=== PATIENT | female | born 1950 | race Caucasian/White ===

== ENCOUNTER 2021-10-30 09:54 | Day surgery (SDC) | payer MEDICARE ==
[~2021-10-30] VITALS: Ht 160 cm; Wt 50.0 kg
[~2021-10-30 09:54] MED LIST: BUPR75 PO
--- NOTE | 2021-10-30 11:06 | NUR ---
10/30/21 1106 Juan Borden WIPE NOT USED DUE TO RED BUMPS ON CHEST. AWARE.
--- NOTE | 2021-10-30 11:54 | NUR ---
10/30/21 1154 NIHARIKA SAINZ PT HAS RED RASH ON CHEST PRIOR TO PREP SOLUTION. DR. BASILIO AND DR. PECK AWARE.
--- NOTE | 2021-10-30 13:02 | NUR ---
10/30/21 1302 STAR HERNÁNDEZ XRAY CAME TO CONFIRM PLACEMENT AT 1240 TREY FROM XRAY CALLED BACK TO CONFIRM THAT PLACEMENT OF PORT WAS GOOD VIA XRAY PER DR GALLEGOS [id number]
== END 2021-10-30 13:45 | disposition home or self-care (01) ==
LOC: ORSCSDS 09:54
PROVIDERS: Surgery
PROC: B544ZZA Ultrasonography of Left Jugular Veins, Guidance (ICD-10-PCS; principal; 2021-10-30 11:15)
PROC: 05HN33Z Insertion of Infusion Device into Left Internal Jugular Vein, Percutaneous Approach (ICD-10-PCS; principal; 2021-10-30 11:15)
DX: C50.911 Malignant neoplasm of unspecified site of right female breast (principal); Z87.891 Personal history of nicotine dependence; F32.A Depression, unspecified; Z79.899 Other long term (current) drug therapy
CPT/HCPCS: 77001; C1788; J0690; J1100; J1642; J2250; J2405; J2704; J3010

== ENCOUNTER → 2023-03-24 | Outpatient (CLI) | payer MEDICARE | END | disposition home or self-care (01) | LOC: LAB SHORT 16:56 → LAB 16:56 | DX: R07.9 Chest pain, unspecified (principal) | CPT/HCPCS: 84484 ==

== ENCOUNTER → 2024-02-23 | Outpatient (CLI) | payer MEDICARE ==
[~2024-02-23] MED LIST changes: +ALBU90OI INH; +AMOX875 PO; +ARIMIDEX1 M2 PO; +AZIT500 PO; +Amoxicillin500 MG PO; +BENZ100A PO; +CODEINE-GUAIFE120 M1 PO; +FLUT.05NI; +PRED20 PO; +ROBITUSSIN30 MG/511 PO; +VISBIOME 112.51 EACH PO
[2024-02-23 16:04] LABS: BASOPHILS ABSOLUTE AUTO 0.04 K/mm3 (0.00-0.23); BASOPHILS PERCENT AUTO 1 % (0-2); EOSINOPHILS ABSOLUTE AUTO 0.61 K/mm3 (0.00-0.68); EOSINOPHILS PERCENT AUTO 9 % (0-6); Hematocrit 40.1 % (33.0-51.0); Hemoglobin 13.5 g/dL (11.5-16.0); IMMATURE GRAN ABSOLUTE AUTO 0.02 K/mm3 (0.00-0.10); IMMATURE GRAN PERCENT AUTO 0 % (0-1); LYMPHOCYTES ABSOLUTE AUTO 1.27 K/mm3 (0.84-5.20); LYMPHOCYTES PERCENT AUTO 18 % (21-46); MONOCYTES ABSOLUTE AUTO 0.41 K/mm3 (0.16-1.47); MONOCYTES PERCENT AUTO 6 % (4-13); Mean Corpuscular HGB 31.8 pg (26.0-34.0); Mean Corpuscular HGB Conc 33.7 g/dL (31.5-36.5); Mean Corpuscular Volume 95 fL (80-100); Mean Platelet Volume 8.9 fL (9.1-12.4); NEUTROPHILS ABSOLUTE AUTO 4.79 K/mm3 (1.96-9.15); NEUTROPHILS PERCENT AUTO 67 % (41-73); Platelet Count 295 K/mm3 (150-400); RDW Coefficient Variation 13.2 % (11.7-14.2); RDW Standard Deviation 45.5 fL (35.1-46.3); Red Blood Cell Count 4.24 M/mm3 (3.80-5.20); White Blood Cell Count 7.14 K/mm3 (4.00-11.30)
[2024-02-23 16:18] LABS: Albumin, Blood 3.6 g/dL (3.4-5.0); Bilirubin, Total 0.2 mg/dL (0.1-1.0); Bun/Creatinine Ratio 13.6 (12.0-20.0); Calcium, Blood 9.1 mg/dL (8.5-10.1); Creatinine, Blood 0.88 mg/dL (0.40-1.00); Globulin, Blood 3.7 g/dL (2.2-4.0); Potassium, Blood 4.3 mmol/L (3.5-5.5); Total Protein, Blood 7.3 g/dL (6.4-8.2)
== END | disposition home or self-care (01) ==
LOC: LAB 16:01 → LAB SHORT 16:01
PROVIDERS: Chiropractor
DX: Z09 Encounter for follow-up examination after completed treatment for conditions other than malignant neoplasm (principal); Z87.01 Personal history of pneumonia (recurrent)
CPT/HCPCS: 80053; 85025

== ENCOUNTER 2024-08-23 11:20 | Day surgery (SDC) | payer MEDICARE ==
[~2024-08-23] VITALS: Ht 157.5 cm; Wt 47.4 kg
[~2024-08-23 11:20] MED LIST changes: +Balanced Salt Epinephrine Irrigation Solution 500 mL IR SCH; +Diazepam 10 MG Tab ONE; +Diazepam 5 MG Tab PO PRN; +Diazepam 5 MG Tab PO SCH; +Lidocaine HCl/Pf 1% 5 ML VIAL XX SCH; +Moxifloxacin HCL 0.5 MG/0.1 ML 0.4MLSYR RIGHTEYE SCH; +Ondansetron 4 MG SoluTab MM PRN; +PHENYLEPHRINE\\TROPICAMIDE\\TETRACAINE OPHTHALMIC DILATING SOLN RIGHTEYE PRN; +Povidone-Iodine 450 DROP/30 ML Solution ONE; +Povidone-Iodine 450 DROP/30 ML Solution RIGHTEYE SCH; +Tetracaine HCl/Pf 0.5% Opth Soln 4 ml ONE; +Triamcinolone Inj Susp 40 MG / ML 1ML Vial INJ SCH; +Triamcinolone Inj Susp 40 MG / ML 1ML Vial ONE
--- NOTE | 2024-08-23 11:39 | NUR ---
08/23/24 1139 Shaila Delacruz 1138: ANXIETY 6/10 PER PATIENT. 10 MG PO VALIUM GIVEN PER ORDERS.
--- NOTE | 2024-08-23 12:33 | NUR ---
08/23/24 1233 Drew Almazan BP 141/74, HR 70, O2 100% WITH BLOW BY AT 8L.
[2024-08-23] MEDS ORDERED: Acetaminophen 500 MG Tab ONE (13:04)
--- NOTE | 2024-08-23 13:20 | NUR ---
08/23/24 1320 Shaila Delacruz 1316: 1000 MG TYLNEOL PO GIVEN PER ORDERS FOR PAIN 08/17 IN EYE, PT REPORTS IT IS "QUITE SORE" DISCUSSED WITH DR KNIGHT. 1319: DR KNIGHT IN TO TALK WITH PATIENT
[2024-08-23 13:25] VITALS: BP 127/66
== END 2024-08-23 14:00 | disposition home or self-care (01) ==
LOC: ORSCSDS 11:20
PROVIDERS: Ophthalmology
PROC: 08RJ3JZ Replacement of Right Lens with Synthetic Substitute, Percutaneous Approach (ICD-10-PCS; principal; 2024-08-23 12:30)
DX: H25.811 Combined forms of age-related cataract, right eye (principal); H52.201 Unspecified astigmatism, right eye; Z96.1 Presence of intraocular lens; Z79.899 Other long term (current) drug therapy
CPT/HCPCS: A9270; J3301; V2632